=== PATIENT | female | born 1955 | race African-American/Black ===

== ENCOUNTER → 2019-09-03 | Outpatient (CLI) | payer OTHER ==
--- NOTE | 2019-09-03 15:04 | RAD ---
EXAM: Left knee, 2 views. HISTORY: Pain. COMPARISON: None. FINDINGS: 2 views left knee are obtained. There is no fracture, dislocation or subluxation. There is enthesopathy along the superior patella. There is a small joint effusion. IMPRESSION: No acute osseous finding. Small joint effusion. Electronically signed by: Flavia Cannon MD (09/03/2019 3:01 PM) [id number]
== END | disposition home or self-care (01) ==
LOC: PMG 14:16
PROVIDERS: ATTEND Physician Assistant
DX: M25.462 Effusion, left knee (principal); M76.892 Other specified enthesopathies of left lower limb, excluding foot
CPT/HCPCS: 73560